=== PATIENT | female | born 1960 | race Caucasian/White ===

== ENCOUNTER 2018-02-19 03:47 | Emergency (ER) | payer OTHER ==
[2018-02-19 03:53] VITALS: BP 104/77
[2018-02-19] MEDS ORDERED: RABIES VACC, HUMAN DIPLOID/PF 2.5 UNIT VIAL (RABAVERT) IM ONE (04:08)
[2018-02-19] MEDS ORDERED: RABIES IMMUNE GLOBULIN 300 UNIT/2 ML VIAL IM ONE (04:08)
--- NOTE | 2018-02-19 04:43 | EDPHY ---
H & P Time Seen by Provider: 02/19/18 04:01 HPI/ROS: Chief complaint: Bat exposure, possible raises exposure HPI: Previously healthy 57-year-old female spent 5 hr in an out building which has been read condition to have insulation and would signing both inside and out. The room is somewhat voluminous at 10 ft he ceilings but is otherwise 8 x 8. She spent 5 hr in their accompanying her grandson. She did leave on 2 occasions to go to the bathroom from that particular room itself. At the 5 hr carolann she heard some noises thinking there might be a varmint in the room. Thereby she turned on the light to find to bats flying around the light source itself. Thereby, she opened the door, the bats left and so did they. There is no specific exposure such as touching of the bats or swatting at the bedside or being bitten per se This happened at home, occurring just [employer]. Reports there is no numbness or loss of sensation. Contamination: Not applicable FB possibility not applicable Animal is not available for testing. She did have post exposure rabies prophylaxis vaccination in 2010 at the [facility], office building. I and the pharmacist were unable to find out the specific brand. PMHx of things that would suggest poor healing: DM no Peripheral Vascular Disease no RA no SLE no Splenectomy no Immunodeficiency no ROS: Neuro: No numbness or tingling or loss of sensation Ten review of systems completed and otherwise negative Smoking Status: Never smoked Physical Exam: General Appearance: Alert, no distress. Afebrile. Normal phonation. No respiratory distress. Eyes: Pupils equal and round no pallor or injection. No icterus ENT, Mouth: Mucous membranes moist Neck: Moving in a smooth manner without restriction Respiratory: No evidence of air hunger Musculoskeletal: No joint swelling. Skin: No wounds. Psychiatric: Normal affect. Patient is oriented X 3. There is no agitation Constitutional: Initial Vital Signs Temperature (C) 36.8 C 02/19/18 03:50 Heart Rate 88 02/19/18 03:50 Respiratory Rate 16 02/19/18 03:50 Blood Pressure 104/77 02/19/18 03:50 O2 Sat (%) 96 02/19/18 03:50 O2 Delivery Mode Room Air Allergies/Adverse Reactions: No Known Allergies Allergy (Unverified 02/19/18 03:49) Home Medications: Medication Instructions Recorded Amitriptyline HCl 02/19/18 Medical Decision Making Procedures: Case discussed with Dr. Pena, on-call for Infectious Disease. She notes that the mother should get vaccinatedas postexpaure in previously vacccinated protocol. D/w patient. ED Course/Re-evaluation: My ED differential: Bat exposure, possible rabies exposure, post exposure rabies prophylaxis in the setting of prior rabies vaccination. - Data Points Medications Given: Discontinued Medications Rabies Immune Globulin (Imogam Rabies Ht 2ml) 952.54 unit IM .ONCE ONE Stop: 02/19/18 04:09 Last Admin: 02/19/18 05:13 Dose: Not Given Rabies Vaccine Human Diploid Cell (Rabavert) 2.5 unit IM .ONCE ONE Stop: 02/19/18 04:09 Last Admin: 02/19/18 05:06 Dose: 2.5 unit Departure - Departure Disposition: Home, Routine, Self-Care Clinical Impression: Exposure to bat without known bite, Rabies, need for prophylactic vaccination against Condition: Good Instructions: Rabies Immune Globulin (By injection) Additional Instructions: You will only need 1 more dose of vaccine at this time, February 22. Call Dr. Pena for follow up dosing for the second vaccination. Referrals: NONE *PRIMARY CARE P,. [Primary Care Provider] - As per Instructions Gisel Pena MD [Medical Doctor] - 2-3 days without fail
== END 2018-02-19 05:12 | disposition home or self-care (01) ==
LOC: CED 03:47
DX: Z20.3 Contact with and (suspected) exposure to rabies (principal); Z23 Encounter for immunization